=== PATIENT | female | born 1940 | race Caucasian/White ===

== ENCOUNTER 2017-09-08 22:24 | Emergency (ER) | payer OTHER ==
[~2017-09-08] VITALS: Ht 157.5 cm; Wt 54.4 kg
[~2017-09-08 22:24] MED LIST: AMLODIPINE BES2.5 MG; AMLODIPINE BESYL5 MG PO; GLIMEPIRIDE4 MG; IRBESARTAN300 MG; LISINOPRIL10 MG; TEMAZEPAM30 MG
== END 2017-09-09 03:55 | disposition home or self-care (01) ==
LOC: ER 22:24
DX: I10 Essential (primary) hypertension (principal)

== ENCOUNTER → 2020-08-22 | Emergency (ER) | payer OTHER ==
[~2020-08-22] VITALS: Ht 154.9 cm; Wt 61.2 kg
[~2020-08-22] MED LIST changes: +CIPRO500 MG/5 M; +COZAAR50 MG; +HEMATINIC-FOLI1 EACH PO; +KAYEXALATE15 GM/60 M PO; +PYRIDIUM100 MG; +TAMS0.4C
== END | disposition left against medical advice (07) ==
LOC: ER 20:33
DX: R60.0 Localized edema (principal); E11.22 Type 2 diabetes mellitus with diabetic chronic kidney disease; I12.9 Hypertensive chronic kidney disease with stage 1 through stage 4 chronic kidney disease, or unspecified chronic kidney disease; N18.9 Chronic kidney disease, unspecified; F17.210 Nicotine dependence, cigarettes, uncomplicated; Z79.84 Long term (current) use of oral hypoglycemic drugs

== ENCOUNTER 2020-08-23 08:00 | Emergency (ER) | payer OTHER ==
[~2020-08-23] VITALS: Ht 154.9 cm; Wt 61.2 kg
[~2020-08-23 08:00] MED LIST changes: -HEMATINIC-FOLI1 EACH PO; -KAYEXALATE15 GM/60 M PO
[2020-08-23] MEDS ORDERED: KAYEXALATE15 GM/60 M PO (12:20)
[2020-08-23] MEDS ORDERED: HEMATINIC-FOLI1 EACH PO (12:20)
== END 2020-08-23 12:45 | disposition left against medical advice (07) ==
LOC: ER 08:00
DX: E11.22 Type 2 diabetes mellitus with diabetic chronic kidney disease (principal); I12.0 Hypertensive chronic kidney disease with stage 5 chronic kidney disease or end stage renal disease; N18.5 Chronic kidney disease, stage 5; N17.8 Other acute kidney failure; D63.1 Anemia in chronic kidney disease; E87.5 Hyperkalemia; M79.605 Pain in left leg; R60.0 Localized edema; F17.210 Nicotine dependence, cigarettes, uncomplicated; Z79.84 Long term (current) use of oral hypoglycemic drugs

== ENCOUNTER 2020-11-22 20:37 | Inpatient (IN) | payer OTHER ==
[~2020-11-22] VITALS: Ht 157.5 cm; Wt 59.0 kg
[~2020-11-22 20:37] MED LIST changes: +HEMATINIC-FOLI1 EACH PO; +KAYEXALATE15 GM/60 M PO
[2020-11-22] MEDS ORDERED: CLONAZEPAM0.5 M1 (21:18)
[2020-11-25] MEDS ORDERED: REFRESH LIQUIGE15 ML (08:11)
[2020-11-25] MEDS ORDERED: VITAMIN D31250 MCG (08:11)
[2020-11-25] MEDS ORDERED: MEMANTINE HCL10 MG (08:11)
[2020-11-25] MEDS ORDERED: LISINOPRIL10 MG (08:11)
[2020-11-25] MEDS ORDERED: GABAPENTIN300 M2 (08:11)
[2020-11-25] MEDS ORDERED: RESTORIL30 MG (08:11)
[2020-11-25] MEDS ORDERED: CHLORTHALIDONE25 MG (08:12)
== END 2020-12-01 22:04 | disposition home or self-care (01) | DRG 292 ==
LOC: ER 20:37 → MEDJ 11-23 11:08
PROVIDERS: ADMIT Internal Medicine; ATTEND Internal Medicine
PROC: 4A12X4Z Monitoring of Cardiac Electrical Activity, External Approach (ICD-10-PCS; principal; 2020-11-23)
PROC: 4A033R1 Measurement of Arterial Saturation, Peripheral, Percutaneous Approach (ICD-10-PCS; 2020-11-23)
PROC: B24BZZZ Ultrasonography of Heart with Aorta (ICD-10-PCS; 2020-11-23)
PROC: BW25ZZZ Computerized Tomography (CT Scan) of Chest, Abdomen and Pelvis (ICD-10-PCS; 2020-11-23)
PROC: 3E0F7SF Introduction of Other Gas into Respiratory Tract, Via Natural or Artificial Opening (ICD-10-PCS; 2020-11-25)
PROC: 05HY33Z Insertion of Infusion Device into Upper Vein, Percutaneous Approach (ICD-10-PCS; 2020-11-28)
DX: I11.0 Hypertensive heart disease with heart failure (principal); I24.9 Acute ischemic heart disease, unspecified; I16.9 Hypertensive crisis, unspecified; N17.8 Other acute kidney failure; J90 Pleural effusion, not elsewhere classified; I50.9 Heart failure, unspecified; E87.5 Hyperkalemia; E78.5 Hyperlipidemia, unspecified; J44.9 Chronic obstructive pulmonary disease, unspecified; E11.9 Type 2 diabetes mellitus without complications; G62.9 Polyneuropathy, unspecified; F17.210 Nicotine dependence, cigarettes, uncomplicated; Z79.4 Long term (current) use of insulin; Z20.822 Contact with and (suspected) exposure to COVID-19